=== PATIENT | male | born 1955 | race Caucasian/White ===

== ENCOUNTER → 2021-06-08 | Outpatient (CLI) | payer OTHER, MEDICARE ==
[~2021-06-08] MED LIST: ALBUTEROL2.5 MG/3 M INH; BASAGLAR K100 UNIT/1 SC; ECOTRIN81 MG PO; GLUCOPHAGE500 MG PO; GLUCOSE GEL38 GM PO; HUMALOG 10100 UNITS/ SC; LANSOPRAZOLE30 MG PO; LIPITOR TAB 2020 MG PO; NITROGLYCERIN2.5 MG PO; NOVOLOG FL100 UNIT/1 SC; OXYGEN; PRINIVIL5 MG PO; PROAIR HFA8.5 GM INH; REQUIP2 MG PO; SINGULAIR10 MG PO; TOPROL XL25 MG PO; VALIUM 5 MG TAB5 MG PO
== END ==
LOC: KOH-I 10:05
DX: Z87.891 Personal history of nicotine dependence (principal); R91.8 Other nonspecific abnormal finding of lung field
CPT/HCPCS: 71271

== ENCOUNTER → 2021-11-23 | Outpatient (CLI) | payer OTHER, MEDICARE | LOC: ECHO 10:45 | DX: I50.9 Heart failure, unspecified (principal); I08.1 Rheumatic disorders of both mitral and tricuspid valves | CPT/HCPCS: ECHO; 93306 ==

== ENCOUNTER → 2021-12-21 | Outpatient (CLI) | payer OTHER, MEDICARE | LOC: HEART 5 08:44 | DX: I25.119 Atherosclerotic heart disease of native coronary artery with unspecified angina pectoris (principal); I42.9 Cardiomyopathy, unspecified | CPT/HCPCS: 78452; A9502; J2785 ==

== ENCOUNTER → 2022-01-05 | Outpatient (CLI) | payer OTHER, MEDICARE | LOC: KOH-I 13:00 | DX: N18.31 Chronic kidney disease, stage 3a (principal) | CPT/HCPCS: 76775 ==

== ENCOUNTER 2022-01-18 20:24 | Inpatient (IN) | payer OTHER, MEDICARE ==
[~2022-01-18] VITALS: Ht 170.2 cm; Wt 81.6 kg
[~2022-01-18 20:24] MED LIST changes: +LISINOPRIL2.5 MG PO; +NITROGLYCERIN0.4 MG SL; -NITROGLYCERIN2.5 MG PO; -PRINIVIL5 MG PO
[2022-01-18 21:34] LABS: HEMOGLOBIN 12.9 gm/dl (14.0-17.5); RED BLOOD COUNT 4.13 M/UL (4.20-5.50); WHITE BLOOD COUNT 12.3 K/UL (4.5-11.0)
[2022-01-18 22:53] LABS: BUN/CREATININE RATIO 19 (0-10)
[2022-01-19] MEDS ORDERED: TRELEGY ELLIPT1 EACH INH (12:12)
[2022-01-19] MEDS ORDERED: FLOMAX 0.4 MG0.4 MG PO (12:14)
[2022-01-19] MEDS ORDERED: AZELASTINE137 MCG/0. (12:15)
[2022-01-19] MEDS ORDERED: RANEXA500 MG PO (12:17)
[2022-01-19] MEDS ORDERED: FUROSEMIDE20 MG PO (12:20)
[2022-01-19] MEDS ORDERED: METFORMIN HCL500 MG PO (12:21)
[2022-01-20 07:23] LABS: HEMOGLOBIN 13.5 gm/dl (14.0-17.5); RED BLOOD COUNT 4.37 M/UL (4.20-5.50)
[2022-01-20 07:47] LABS: BUN/CREATININE RATIO 19 (0-10)
[2022-01-21 03:42] LABS: HEMOGLOBIN 12.3 gm/dl (14.0-17.5); RED BLOOD COUNT 4.01 M/UL (4.20-5.50); WHITE BLOOD COUNT 12.2 K/UL (4.5-11.0)
[2022-01-21 04:13] LABS: BUN/CREATININE RATIO 21 (0-10)
[2022-01-22 05:14] LABS: BUN/CREATININE RATIO 23 (0-10)
[2022-01-22 05:38] LABS: HEMOGLOBIN 13.2 gm/dl (14.0-17.5); RED BLOOD COUNT 4.27 M/UL (4.20-5.50); WHITE BLOOD COUNT 12.8 K/UL (4.5-11.0)
[2022-01-22] MEDS ORDERED: FUROSEMIDE20 MG PO (09:20)
[2022-01-22] MEDS ORDERED: ATORVASTATIN CA20 MG PO (09:20)
[2022-01-22] MEDS ORDERED: OMNICEF 300 MG300 MG PO (09:20)
[2022-01-22] MEDS ORDERED: DOXYCYCLINE HY100 MG PO (09:20)
[2022-01-22] MEDS ORDERED: ASPIRIN EC81 MG PO (09:20)
[2022-01-22] MEDS ORDERED: DECADRON6 MG PO (09:20)
--- NOTE | 2022-01-22 15:21 | NUR ---
REPORT CALLED TO [facility]. SPOKE TO DANIELA.
== END 2022-01-22 12:50 | disposition home health service (06) | DRG 177 ==
LOC: ER1 20:24 → CDU 23:57 → MED SURG 4 23:57
PROVIDERS: Internal Medicine; Physician Assistant; ADMIT Internal Medicine
PROC: B24BZZZ Ultrasonography of Heart with Aorta (ICD-10-PCS; principal; 2022-01-19)
PROC: 8E0ZXY6 Isolation (ICD-10-PCS; 2022-01-19)
PROC: 3E0333Z Introduction of Anti-inflammatory into Peripheral Vein, Percutaneous Approach (ICD-10-PCS; 2022-01-19)
PROC: XW033E5 Introduction of Remdesivir Anti-infective into Peripheral Vein, Percutaneous Approach, New Technology Group 5 (ICD-10-PCS; 2022-01-19)
DX: U07.1 COVID-19 (principal); G93.41 Metabolic encephalopathy; J12.82 Pneumonia due to coronavirus disease 2019; J96.21 Acute and chronic respiratory failure with hypoxia; J96.22 Acute and chronic respiratory failure with hypercapnia; J44.0 Chronic obstructive pulmonary disease with (acute) lower respiratory infection; J44.1 Chronic obstructive pulmonary disease with (acute) exacerbation; I47.1 Supraventricular tachycardia; I50.22 Chronic systolic (congestive) heart failure; G45.9 Transient cerebral ischemic attack, unspecified; I11.0 Hypertensive heart disease with heart failure; D72.829 Elevated white blood cell count, unspecified; I25.10 Atherosclerotic heart disease of native coronary artery without angina pectoris; G20 Parkinson's disease; I49.5 Sick sinus syndrome; R29.810 Facial weakness; I25.5 Ischemic cardiomyopathy; N40.0 Benign prostatic hyperplasia without lower urinary tract symptoms; R47.81 Slurred speech; E11.9 Type 2 diabetes mellitus without complications; Z95.0 Presence of cardiac pacemaker; Z79.01 Long term (current) use of anticoagulants; Z79.82 Long term (current) use of aspirin; Z99.81 Dependence on supplemental oxygen; Z95.1 Presence of aortocoronary bypass graft; Z79.4 Long term (current) use of insulin; Z80.1 Family history of malignant neoplasm of trachea, bronchus and lung; Z82.49 Family history of ischemic heart disease and other diseases of the circulatory system; Z87.891 Personal history of nicotine dependence
CPT/HCPCS: ECHO; 0240U; 36415; 36600; 70450; 71045; 71275; 80053; 80061; 80202; 81001; 82550; 82553; 82803; 82962; 83036; 83735; 83880; 84484; 85025; 85027; 92610; 93005; 93306; 93880; 94640; 94664; 94760; 96374; 96375; 97116-GP-CQ; 97161; 97165; 97530; 99285; G0378; J0248; J0456; J0692; J0696; J1100; J1650; J3370; J7030; J7070; Q9967

== ENCOUNTER → 2022-01-29 | Outpatient (CLI) | payer OTHER, MEDICARE ==
[~2022-01-29] MED LIST changes: +ASPIRIN EC81 MG PO; +ATORVASTATIN CA20 MG PO; +AZELASTINE137 MCG/0.; +DECADRON6 MG PO; +DOXYCYCLINE HY100 MG PO; +FLOMAX 0.4 MG0.4 MG PO; +FUROSEMIDE20 MG PO; +METFORMIN HCL500 MG PO; +OMNICEF 300 MG300 MG PO; +RANEXA500 MG PO; +TRELEGY ELLIPT1 EACH INH
== END ==
LOC: KOH-I 09:23
DX: R05.9 Cough, unspecified (principal); R06.02 Shortness of breath; Z86.16 Personal history of COVID-19; R91.8 Other nonspecific abnormal finding of lung field
CPT/HCPCS: 71046